=== PATIENT | male | born 1975 | race Caucasian/White ===

== ENCOUNTER 2021-02-24 10:26 | Observation (INO) | payer SELFPAY ==
[~2021-02-24] VITALS: Ht 182.9 cm; Wt 122.4 kg
[2021-02-24] MEDS ORDERED: ASPIRIN 325 MG TABLET PO ONE (11:00)
[2021-02-24 11:23] LABS: BASO # 0.1 x10^3/uL (0.0-0.2); BASO % 1 % (0-3); EOS # 0.1 x10^3/uL (0.0-0.7); EOS % 1 % (0-3); HEMATOCRIT 42.5 % (39.0-53.0); HEMOGLOBIN 14.7 g/dL (13.0-17.5); LYMPH # 2.5 x10^3/uL (1.0-4.8); LYMPH % 26 % (24-48); MEAN CORPUSCULAR HEMOGLOBIN 29 pg (25-35); MEAN CORPUSCULAR HGB CONC 35 g/dL (31-37); MEAN CORPUSCULAR VOLUME 83 fL (79-100); MONO # 0.7 x10^3/uL (0.0-1.1); MONO % 8 % (0-9); NEUT # 6.2 x10^3/uL (1.8-7.7); NEUT % 64 % (31-73); PLATELET COUNT 379 x10^3/uL (140-400); RED BLOOD COUNT 5.12 x10^6/uL (4.30-5.70); RED CELL DISTRIBUTION WIDTH 13.4 % (11.5-14.5); WHITE BLOOD COUNT 9.7 x10^3/uL (4.0-11.0)
[2021-02-24] MEDS: NITROGLYCERIN SUBLINGUAL 0.4 MG BOTTLE OF 25. SL PRN ×3 (11:28→12:09)
--- NOTE | 2021-02-24 11:36 | RAD ---
EXAM: Chest, single view. HISTORY: Chest pain. COMPARISON: None. FINDINGS: A frontal view of the chest is obtained. There is a small left retrocardiac opacity due to atelectasis or infiltrate. There is no pleural effusion or pneumothorax. The heart is normal in size. IMPRESSION: Suspected focal left lower lobe atelectasis or interstitial infiltrate. Electronically signed by: Perla Burris MD (02/24/2021 11:34 AM) [id number]
--- NOTE | 2021-02-24 11:40 | PHYS DOC ---
Past Medical History Past Medical History: Hypertension Past Surgical History: Tonsillectomy, Other Additional Past Surgical Histo: L. 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 He states short of breath especially with exertion. He states he is also having a aching pain in the left arm. Patient has a history of hypertension but is not taking any medicines every day. He is a smoker and he does vape. He has a family history of cardiac arrest and heart disease. Rates his pain around a 7 out of 10. He states that he also has lower extremity edema from time to time. He denies numbness or tingling, syncope, cough, fever, abdominal pain, nausea, vomiting, diarrhea, back pain, urinary symptoms, calf pain. Review of Systems: Review of Systems: Constitutional: Denies fever or chills. [] Eyes: Denies change in visual acuity. [] HENT: Denies nasal congestion or sore throat. [] Respiratory: Denies cough or +shortness of breath. [] Cardiovascular: +chest pain or +edema. [] GI: Denies abdominal pain, nausea, vomiting, bloody stools or diarrhea. [] : Denies dysuria. [] Musculoskeletal: Denies back pain or joint pain. [] Integument: Denies rash. [] Neurologic: Denies headache, focal weakness or sensory changes. +Light headedness[] Endocrine: Denies polyuria or polydipsia. [] Lymphatic: Denies swollen glands. [] Psychiatric: Denies depression or anxiety. [] Heart Score: C/O Chest Pain: Yes HEART Score for Chest Pain: HEART Score for Chest Pain Response (Comments) Value History Moderately Suspicious 1 ECG Nonspecific Repolarizatio 1 Age < 45 0 Risk Factors >3 Risk Factors or Hx CAD 2 Troponin < Normal Limit 0 Total 4 Risk Factors: Risk Factors: DM, Current or recent (<one month) smoker, HTN, HLP, family history of CAD, obesity. Risk Scores: Score 0 - 3: 2.5% MACE over next 6 weeks - Discharge Home Score 4 - 6: 20.3% MACE over next 6 weeks - Admit for Clinical Observation Score 7 - 10: 72.7% MACE over next 6 weeks - Early Invasive Strategies Current Medications: Current Medications Medications (Trade) Dose Ordered Sig/Gilma Start Time Stop Time Status Last Admin Dose Admin Aspirin (Heaven Aspirin) 325 mg 1X ONCE 02/24/21 11:00 02/24/21 11:01 DC 02/24/21 11:27 325 MG Nitroglycerin (Nitrostat) 0.4 mg PRN Q5MIN PRN 02/24/21 11:00 02/24/21 11:28 0.4 MG Allergies: Allergies: Allergies Coded Allergies Type Severity Reaction Last Updated Verified Sulfa (Sulfonamide Antibiotics) Allergy Intermediate 02/24/21 Yes Physical Exam: PE: Constitutional: Well developed, well nourished, no acute distress, non-toxic appearance. [] HENT: Normocephalic, atraumatic, bilateral external ears normal, oropharynx moist, no oral exudates, nose normal. [] Eyes: PERRLA, EOMI, conjunctiva normal, no discharge. [] Neck: Normal range of motion, no tenderness, supple, no stridor. [] Cardiovascular:Heart rate regular rhythm, no murmur [] Lungs & Thorax: Bilateral breath sounds clear to auscultation [] Abdomen: Bowel sounds normal, soft, no tenderness, no masses, no pulsatile masses. [] Skin: Warm, dry, no erythema, no rash. [] Back: No tenderness, no CVA tenderness. [] Extremities: No tenderness, no cyanosis, no clubbing, ROM intact,1+ edema. [] Neurologic: Alert and oriented X 3, normal motor function, normal sensory f unction, no focal deficits noted. [] Psychologic: Affect normal, judgement normal, mood normal. [] Current Patient Data: Labs: Laboratory Tests Test 02/24/21 10:50 White Blood Count 9.7 x10^3/uL (4.0-11.0) Red Blood Count 5.12 x10^6/uL (4.30-5.70) Hemoglobin 14.7 g/dL (13.0-17.5) Hematocrit 42.5 % (39.0-53.0) Mean Corpuscular Volume 83 fL (79-100) Mean Corpuscular Hemoglobin 29 pg (25-35) Mean Corpuscular Hemoglobin Concent 35 g/dL (31-37) Red Cell Distribution Width 13.4 % (11.5-14.5) Platelet Count 379 x10^3/uL (140-400) Neutrophils (%) (Auto) 64 % (31-73) Lymphocytes (%) (Auto) 26 % (24-48) Monocytes (%) (Auto) 8 % (0-9) Eosinophils (%) (Auto) 1 % (0-3) Basophils (%) (Auto) 1 % (0-3) Neutrophils # (Auto) 6.2 x10^3/uL (1.8-7.7) Lymphocytes # (Auto) 2.5 x10^3/uL (1.0-4.8) Monocytes # (Auto) 0.7 x10^3/uL (0.0-1.1) Eosinophils # (Auto) 0.1 x10^3/uL (0.0-0.7) Basophils # (Auto) 0.1 x10^3/uL (0.0-0.2) Laboratory Tests 02/24/21 10:50 Vital Signs: Vital Signs Date Time Temp Pulse Resp B/P (MAP) Pulse Ox O2 Delivery O2 Flow Rate FiO2 02/24/21 11:28 71 195/98 02/24/21 10:26 97.9 20 98 Room Air 97.9 EKG: EK and read by Dr. Linton is sinus rhythm with no STEMI. [address] Linton sinus rhythm and no STEMI Radiology/Procedures: Radiology/Procedures: [] Impression: [facility] [address] [place], [place] [id number] IMAGING REPORT Signed PATIENT: DANIELE ESPINOZA AACCOUNT: [id number] : 1975 LOCATION: ER AGE: 45 SEX: M EXAM STATUS: PRE ER ORD. PHYSICIAN: BRITTNEY TORRES APRN REASON: chest pain, soa PROCEDURE: PORTABLE CHEST 1V EXAM: Chest, single view. HISTORY: Chest pain. COMPARISON: None. FINDINGS: A frontal view of the chest is obtained. There is a small left retrocardiac opacity due to atelectasis or infiltrate. There is no pleural effusion or pneumothorax. The heart is normal in size. IMPRESSION: Suspected focal left lower lobe atelectasis or interstitial infiltrate. Electronically signed by: Perla Fernandez MD (02/24/2021 11:34 AM) [id number] DICTATED and SIGNED BY: PERLA FERNANDEZ MD DATE: 02/24/21 [id number] Course & Med Decision Making: Course & Med Decision Making Pertinent Labs and Imaging studies reviewed. (See chart for details) COVID-19 CRITERIA: The patient was evaluated during the global COVID-19 pandemic, and that diagnosis was suspected/considered upon their initial presentation. Their evaluation, treatment and testing was consistent with current guidelines for patients who present with complaints or symptoms that may be related to COVID-19. See HPI. Alert and oriented x4. Ambulatory with a steady gait. Skin pink warm and dry. Bilateral lower extremities 1+ edema. Speaks in full clear sentences. Lungs are clear to auscultation all lobes. After 3 nitroglycerin patient states it helped take his pain down. Also help lower his blood pressure. Chest x-ray shows pneumonia. Heart score is a 4. Patient admitted for chest pain, pneumonia and also testing for Covid. [] Dragon Disclaimer: Emir Disclaimer: This electronic medical record was generated, in whole or in part, using a voice recognition dictation system. COVID-19 Patient Risks: Age 65 or older: No Sign of co-morbidity: Yes Exp to person + for COVID: No Exp to PUI: No Travel from affected area: No Lower respiratory symptoms: Yes Fever: No Other: No PPE Use: Full PPE with N95 mask or PAPR: Yes Departure Departure Impression: Primary Impression: Hypertensive urgency Additional Impressions: Pneumonia Qualified Codes: J18.9 - Pneumonia, unspecified organism Person under investigation for COVID-19 Chest pain Qualified Codes: R07.9 - Chest pain, unspecified Disposition: ADMITTED INPATIENT Admitting Physician: KERRIE Condition: STABLE BRITTNEY TORRES APRN February 24, 2021 11:40
[2021-02-24 11:42] LABS: PROTHROMBIN TIME PATIENT 12.5 SEC (11.7-14.0)
[2021-02-24 11:52] LABS: CALCIUM 8.6 mg/dL (8.5-10.1); CREATININE 1.4 mg/dL (0.7-1.3); GFR 54.8; POTASSIUM 3.9 mmol/L (3.5-5.1)
[2021-02-24 11:55] LABS: ALBUMIN 4.1 g/dL (3.4-5.0); ALBUMIN/GLOBULIN RATIO 1.2 (1.0-1.7); TOTAL BILIRUBIN 0.4 mg/dL (0.2-1.0); TOTAL PROTEIN 7.6 g/dL (6.4-8.2)
[2021-02-24 12:01] LABS: D-DIMER < 0.27 ug/mlFEU (0.00-0.50)
[2021-02-24] MEDS ORDERED: IV NORMAL SALINE 1000ML BAG 1,000 ML IV ONE (12:30)
--- NOTE | 2021-02-24 12:38 | EKG ---
[facility] [address] [place] [address] Test Date: 2021-02-24 Test Time: 10:32:43 Pat Name: DANIELE ESPINOZA Department: Room: Gender: M [employer] Worker: : 1975 Requested By: BRITTNEY TORRES Order Number: [id number] Reading MD: Measurements Intervals [place] Rate: 79 P: 40 FL: 164 QRS: -9 QRSD: 80 T: 25 QT: 356 QTc: 409 Interpretive Statements SINUS RHYTHM LEFTWARD AXIS QRS(T) CONTOUR ABNORMALITY CONSIDER ANTEROSEPTAL MYOCARDIAL DAMAGE POSSIBLY ABNORMAL ECG RI6.01 No previous ECG available for comparison
[2021-02-24 13:13] LABS: BILIRUBIN,URINE NEGATIVE (NEG); CLARITY,URINE CLEAR; COLOR,URINE YELLOW; NITRITE,URINE NEGATIVE (NEG); PH,URINE 6.5 (<5.0-8.0); PROTEIN,URINE NEGATIVE (NEG-TRACE); UROBILINOGEN,URINE 0.2 mg/dL (0.2 mg/dL)
[2021-02-24 13:19] LABS: BACTERIA,URINE 0 /HPF (0-FEW); RBC,URINE RARE /HPF (0-2); WBC,URINE 0 /HPF (0-4)
[2021-02-24 13:20] LABS: BARBITURATES NEG (NEG); BENZODIAZEPINES NEG (NEG); CANNABINOIDS NEG (NEG); COCAINE NEG (NEG); METHADONE NEG (NEG); OPIATES NEG (NEG); PHENCYCLIDINE NEG (NEG)
[2021-02-24 13:26] LABS: AMPHETAMINE/METHAMPHETAMINE NEG (NEG)
[2021-02-24 14:40] VITALS: BP 161/93
--- NOTE | 2021-02-24 15:52 | EKG ---
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
[2021-02-24] MEDS ORDERED: LABETALOL 20 MG/4 ML DISP.SYRIN. IVP PRN (16:00)
[2021-02-24] MEDS ORDERED: amLODIPine BESYLATE 5 MG TABLET PO ONE (16:00)
--- NOTE | 2021-02-24 16:06 | PDOC2 ---
CARDIAC CONSULT DATE OF CONSULT Date of Consult DATE: 02/24/21 TIME: 15:40 REASON FOR CONSULT Reason for Consult: Chest pain, hypertensive REFERRING PHYSICIAN Referring Physician: Abad SOURCE Source: Chart review, Patient HISTORY OF PRESENT ILLNESS HISTORY OF PRESENT ILLNESS This is a pleasant 45 yo male admitted for complains of chest pain. 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 He was told in the past of HTN and was given meds but he stopped taking it since he could not follow up when he ran out and that has been a while. No falls or injury but while driving yesterday he felt some chest tightness sort of left prickly pain and felt clammy but no SOA, nausea or comiting. No palpitations. No fever or chills and no loss of taste or smell. No hx of CAD but also has not had any prior ischemic workup. Denies any VTE, arrhythmias in the past. No significant heavy lifting as far as his job and no prior covid-19 exposure. Upon admission his BP was uncontrolled. PAST MEDICAL HISTORY Cardiovascular: HTN Pulmonary: No pertinent hx CENTRAL NERVOUS SYSTEM: Other (No pertinent history) GI: No pertinent hx Heme/Onc: No pertinent hx Hepatobiliary: No pertinent hx Psych: No pertinent hx Musculoskeletal: Osteoarthritis Rheumatologic: No pertinent hx Infectious disease: No pertinent hx ENT: No pertinent hx Renal/: No pertinent hx Endocrine: No pertinent hx Dermatology: No pertinent hx PAST SURGICAL HISTORY Past Surgical History: Arthroscopy (left ankle), Tonsillectomy FAMILY HISTORY Family History: Coronary Artery Disease (mother CABG early 40s and father had cardiac arrest due to arrhythmia and had PPM late 30s) SOCIAL HISTORY Smoke: Quit (now vaping) ALCOHOL: none Drugs: None Lives: with Family CURRENT MEDICATIONS CURRENT MEDICATIONS Current Medications Medications (Trade) Dose Ordered Sig/Gilma Route PRN Reason Start Time Stop Time Status Last Admin Dose Admin Aspirin (Heaven Aspirin) 325 mg 1X ONCE PO 02/24/21 11:00 02/24/21 11:01 DC 02/24/21 11:27 Nitroglycerin (Nitrostat) 0.4 mg PRN Q5MIN PRN SL CHEST PAIN 02/24/21 11:00 02/24/21 12:09 Sodium Chloride 1,000 ml @ 1,000 mls/hr 1X ONCE IV 02/24/21 12:30 02/24/21 13:29 DC 02/24/21 12:55 ALLERGIES ALLERGIES: Coded Allergies: Sulfa (Sulfonamide Antibiotics) (Verified Allergy, Intermediate, 02/24/21) ROS Review of System 14 point ROS evaluated with pertinent positives noted per HPI PHYSICAL EXAM General: Alert, Oriented X3, Cooperative, No acute distress HEENT: Atraumatic, Mucous membr. moist/pink Lungs: Clear to auscultation, Normal air movement Heart: Regular rate (SR), Normal S1, Normal S2, No murmurs Abdomen: Soft, No tenderness Extremities: No cyanosis, No edema Skin: No breakdown, No significant lesion Neuro: Normal speech, Sensation intact Psych/Mental Status: Mental status NL, Mood NL MUSCULOSKELETAL: Osteoarthritic changes both hands VITALS/I&O VITALS/I&O: Vital Signs Date Time Temp Pulse Resp B/P (MAP) Pulse Ox O2 Delivery O2 Flow Rate FiO2 02/24/21 15:08 Room Air 02/24/21 14:40 97.7 73 18 161/93 (115) 98 97.7 LABS Lab: Laboratory Tests Test 02/24/21 10:50 02/24/21 12:50 02/24/21 12:53 02/24/21 12:55 White Blood Count 9.7 x10^3/uL (4.0-11.0) Red Blood Count 5.12 x10^6/uL (4.30-5.70) Hemoglobin 14.7 g/dL (13.0-17.5) Hematocrit 42.5 % (39.0-53.0) Mean Corpuscular Volume 83 fL (79-100) Mean Corpuscular Hemoglobin 29 pg (25-35) Mean Corpuscular Hemoglobin Concent 35 g/dL (31-37) Red Cell Distribution Width 13.4 % (11.5-14.5) Platelet Count 379 x10^3/uL (140-400) Neutrophils (%) (Auto) 64 % (31-73) Lymphocytes (%) (Auto) 26 % (24-48) Monocytes (%) (Auto) 8 % (0-9) Eosinophils (%) (Auto) 1 % (0-3) Basophils (%) (Auto) 1 % (0-3) Neutrophils # (Auto) 6.2 x10^3/uL (1.8-7.7) Lymphocytes # (Auto) 2.5 x10^3/uL (1.0-4.8) Monocytes # (Auto) 0.7 x10^3/uL (0.0-1.1) Eosinophils # (Auto) 0.1 x10^3/uL (0.0-0.7) Basophils # (Auto) 0.1 x10^3/uL (0.0-0.2) Prothrombin Time 12.5 SEC (11.7-14.0) Prothrombin Time INR 1.0 (0.8-1.1) D-Dimer (Darcy) < 0.27 ug/mlFEU Sodium Level 137 mmol/L (136-145) Potassium Level 3.9 mmol/L (3.5-5.1) Chloride Level 103 mmol/L (98-107) Carbon Dioxide Level 26 mmol/L (21-32) Anion Gap 8 (6-14) Blood Urea Nitrogen 14 mg/dL (8-26) Creatinine 1.4 mg/dL (0.7-1.3) H Estimated GFR (Cockcroft-Gault) 54.8 BUN/Creatinine Ratio 10 (6-20) Glucose Level 133 mg/dL (70-99) H Calcium Level 8.6 mg/dL (8.5-10.1) Total Bilirubin 0.4 mg/dL (0.2-1.0) Aspartate Amino Transferase (AST) 18 U/L (15-37) Alanine Aminotransferase (ALT) 35 U/L (16-63) Alkaline Phosphatase 99 U/L (46-116) Troponin I Quantitative < 0.017 ng/mL (0.000-0.055) AU-Ywt-Q-Type Natriuretic Peptide 26 pg/mL (0-124) Total Protein 7.6 g/dL (6.4-8.2) Albumin 4.1 g/dL (3.4-5.0) Albumin/Globulin Ratio 1.2 (1.0-1.7) Lipase 323 U/L (73-393) Urine Collection Type Unknown Urine Color Yellow Urine Clarity Clear Urine pH 6.5 (<5.0-8.0) Urine Specific [place] 1.010 (1.000-1.030) Urine Protein Negative mg/dL (NEG-TRACE) Urine Glucose (UA) Negative mg/dL (NEG) Urine Ketones (Stick) Negative mg/dL (NEG) Urine Blood Negative (NEG) Urine Nitrite Negative (NEG) Urine Bilirubin Negative (NEG) Urine Urobilinogen Dipstick 0.2 mg/dL (0.2 mg/dL) Urine Leukocyte Esterase Negative (NEG) Urine RBC Rare /HPF (0-2) Urine WBC 0 /HPF (0-4) Urine Bacteria 0 /HPF (0-FEW) Urine Mucus Slight /LPF Urine Opiates Screen Neg (NEG) Urine Methadone Screen Neg (NEG) Urine Barbiturates Neg (NEG) Urine Phencyclidine Screen Neg (NEG) Urine Amphetamine/Methamphetamine Neg (NEG) Urine Benzodiazepines Screen Neg (NEG) Urine Cocaine Screen Neg (NEG) Urine Cannabinoids Screen Neg (NEG) Urine Ethyl Alcohol Neg (NEG) Lactic Acid Level 1.1 mmol/L (0.4-2.0) Test 02/24/21 14:18 Troponin I Quantitative < 0.017 ng/mL (0.000-0.055) Laboratory Tests 02/24/21 10:50 Laboratory Tests 02/24/21 10:50 ASSESSMENT/PLAN ASSESSMENT/PLAN 1. Chest pain: likely from uncontrolled HTN 2. Accelerated HTN 3. Family hx of premature CAD 4. Obesity 5. PUI 6. suspect CKD 7. Vaping: otherwise 60 pk yr tobacco use Recommendations 1. Norvasc x1. Labetolol PRN 2. TSH and FLP. Awaiiting covid-19. Trend troponin 3. TTE tomorrow if neg for covid-19 4. Consider for outpt stress test. MUNA DENSON PROGRAM MEDICAL DIRECTOR February 24, 2021 16:06
--- NOTE | 2021-02-24 17:29 | HP ---
ADMIT DATE: 02/24/2021 CHIEF COMPLAINT: Chest pain. 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 He presents today with chest pain. He has some associated shortness of breath and nausea. It is also radiating to the left arm, rated at 7/10. I gave him a couple of nitro in the ER that did seem to help. His blood pressure was also 200 systolically. Chest x-ray showing possible pneumonia. I discussed the case with the ER physician. We are going to admit the patient and consult Cardiology. PAST MEDICAL HISTORY: Hypertension. ALLERGIES: SULFA. FAMILY HISTORY: Diabetes. SOCIAL HISTORY: Does not drink, smoke or take drugs. 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 MEDICATIONS: Reviewed. Please refer to the MRAD. REVIEW OF SYSTEMS: GENERAL: No history of weight change, weakness or fevers. SKIN: No bruising, hair changes or rashes. EYES: No blurred, double or loss of vision. NOSE AND THROAT: No history of nosebleeds, hoarseness or sore throat. HEART: No history of palpitations, chest pain or shortness of breath on exertion. LUNGS: Denies cough, hemoptysis, wheezing or shortness of breath. GASTROINTESTINAL: Denies changes in appetite, nausea, vomiting, diarrhea or constipation. GENITOURINARY: No history of frequency, urgency, hesitancy or nocturia. NEUROLOGIC: Denies history of numbness, tingling, tremor or weakness. PSYCHIATRIC: No history of panic, anxiety or depression. ENDOCRINE: No history of heat or cold intolerance, polyuria or polydipsia. EXTREMITIES: Denies muscle weakness, joint pain, pain on walking or stiffness. PHYSICAL EXAMINATION: VITALS: Within normal limits and are stable. GENERAL: No apparent distress. Alert and oriented. HEENT: Normal cephalic atraumatic, external auditory canals are patent. EYES: Extraocular muscles are intact, pupils are equally round and reactive to light and accommodation. MUSCULOSKELETAL: Well developed, well nourished, good range of motion. ENDOCRINE: No thyromegaly was palpated. LYMPHATICS: No cervical chain or axillary nodes were noted. HEMATOPOIETIC: No bruising. NECK: Supple, no JVD, no thyromegaly was noted. LUNGS: Clear to auscultation in all lung wick without rhonchi or wheezing. HEART: RRR, S1, S2 present. Peripheral pulses intact, no obvious murmurs were noted. ABDOMEN: Soft, nontender. Positive bowel sounds no organomegaly, normal bowel sounds. EXTREMITIES: Without any cyanosis, clubbing, or edema. Pedal pulses intact, Homans sign is negative. NEUROLOGIC: Normal speech, normal tone. A and O x3, moves all extremities, no obvious focal deficits. PSYCHIATRIC: Normal affect, normal mood. Stable. SKIN: No ulcerations or rashes, good skin turgor, no jaundice. VASCULAR: Good capillary refill, neurovascular bundle appears to be intact. LABORATORY DATA: Troponin is 0. Hematology is normal. Electrolytes are pending. Chest x-ray shows suspected left lower lobe atelectasis or infiltrate. ASSESSMENT AND PLAN: Chest pain and abnormal chest x-ray. The patient will be admitted. We will consult Pulmonary, consult Cardiology. Home meds. Deep venous thrombosis prophylaxis. Full code. Cardiac monitoring, serial enzymes, serial EKGs. Regarding the accelerated hypertension, we will give him p.r.n. labetalol and amlodipine. Check a TSH. We have him on respiratory isolation to check for COVID-19. P.r.n. nitro, daily aspirin. AGUSTÍN/EDI/[facility] DR: AGUSTÍN/roro TID: [id number]
[2021-02-24] MEDS ORDERED: ACETAMINOPHEN 325 MG TABLET. PO PRN (17:30)
[2021-02-24 19:00] VITALS: BP 151/87
[2021-02-24] MEDS ORDERED: BENZOCAINE 10% ORAL GEL 7GM TUBE. TP PRN (22:00)
[2021-02-24 22:46] VITALS: BP 157/81
[2021-02-25 03:00] VITALS: BP 142/91
[2021-02-25 04:32] LABS: CHOLESTEROL/HDL RATIO 8.8
[2021-02-25 07:00] VITALS: BP 173/99
[2021-02-25] MEDS ORDERED: amLODIPine BESYLATE 10 MG TABLET PO SCH (09:00)
[2021-02-25 09:12] LABS: CALCIUM 8.5 mg/dL (8.5-10.1); CREATININE 1.3 mg/dL (0.7-1.3); GFR 59.7; POTASSIUM 4.2 mmol/L (3.5-5.1)
--- NOTE | 2021-02-25 09:34 | CONS ---
DATE OF CONSULTATION: 02/25/2021 PULMONARY CONSULTATION ATTENDING PHYSICIAN: Joycelyn Bonner DO REASON FOR CONSULTATION: Chest pain. HISTORY OF PRESENT ILLNESS: The patient is a 45-year-old obese male with a BMI of 36. The patient has a history of tobacco use up to 2 packs per day, quit tobacco and then has been vaping cigarettes for 5 years. He was brought into the hospital with a complaint of substernal chest pain radiating to the left arm. The patient was also hypertensive on arrival. His blood pressure was 191 systolic with a diastolic of 98. His chest pain is resolved. He feels better. There is no shortness of breath. No cough, no fever, no chills. No headache. No nausea, vomiting or diarrhea. Chest x-ray was reviewed by me. Per my review, there is no consolidation. PAST MEDICAL HISTORY: Significant for hypertension, osteoarthritis and obesity. PAST SURGICAL HISTORY: Arthroscopic surgery and tonsillectomy. FAMILY HISTORY: Coronary artery disease. Mother had CABG in her early 40s and father had cardiac arrest due to arrhythmias and had pacemaker lat in the 30s. SOCIAL HISTORY: He smoked for 15 years up to 2 packs per day and then has been doing vaping for the last 5 years. REVIEW OF SYSTEMS: Twelve-point system obtained. Pertinent positives and negatives discussed in my presence illness, otherwise noncontributory. All systems that were negative were reviewed as well. ALLERGIES: SULFA. MEDICATIONS: Reviewed as listed in the MRAD. PHYSICAL EXAMINATION: VITAL SIGNS: Reviewed. Blood pressure is now better controlled. It has come down as well as 142 systolic. Afebrile, pulse ox 94% on room air. NECK: Supple. LUNGS: Clear. CARDIOVASCULAR: With a regular rate and rhythm. ABDOMEN: Soft and nontender. EXTREMITIES: With no pitting edema. LABORATORY DATA: Labs were reviewed. COVID negative. BUN and creatinine 13 and 1.3. D-dimer less than 0.27. White cell count 9.7. IMPRESSION: 1. Substernal chest pain with radiation to the left arm. Likely contributed by hypertensive urgency and angina-like symptoms. Symptoms have resolved. D-dimer normal and no need to pursue with any thromboembolic workup. 2. History of tobaccoism. Now doing vaping for the last 5 years. Family history of premature coronary artery disease. 3. Underlying obesity. RECOMMENDATIONS: 1. From pulmonary standpoint, he is stable. I have counseled him regarding cessation of vaping. He does not seem to be motivated. 2. Control of blood pressure per Cardiology. 3. He is COVID negative. 4. Follow Cardiology recommendation. Outpatient stress test per their recommendation. 5. From a pulmonary standpoint, he could be discharged. LINNEA DR: Duran TID: [id number]
[2021-02-25 11:00] VITALS: BP 167/88
--- NOTE | 2021-02-25 11:16 | NUR ---
SS following for discharge planning. SS reviewed pt chart and discussed with pt RN. Pt is from home and is currently on room air. Cardiology and Pulmonology consulted. COVID19 negative. Discharge plan is to home when medically ready. SS will continue to follow for discharge planning.
[2021-02-25] MEDS ORDERED: AMLO-187 PO (11:47)
[2021-02-25] MEDS ORDERED: ATOR40TA59 PO (11:48)
--- NOTE | 2021-02-25 11:49 | DISCH ---
DISCHARGE INSTRUCTIONS Condition on Discharge Condition on Discharge: Stable Activity After Discharge Activity Instructions for Disc: Activity as tolerated Driving Instructions after Dis: Do not drive today Diet after Discharge Diet after Discharge: Cardiac Checks after Discharge Checks after discharge: Check blood press - daily Follow-Up Follow up with: PCP GUME Follow Up With: Cardiology once established with PCP MERISSA AHN MD February 25, 2021 11:49
[2021-02-25] MEDS ORDERED: ASPIRIN ENTERIC COATED 81 MG TABLET.DR. PO SCH (12:00)
[2021-02-25] MEDS ORDERED: METOPROLOL TART IMMED RELEASE 25 MG TABLET. PO SCH (12:00)
--- NOTE | 2021-02-25 12:06 | PDOC ---
MUNA DENSON [employer] TECHNICIAN 02/25/21 1206: CARDIO Progress Notes Date and Time Date of Service 02/25/2021 Time of Evaluation 1130 Subjective Subjective: No Chest Pain, No shortness of breath, No Palpitations Vitals Vitals Vital Signs Date Time Temp Pulse Resp B/P (MAP) Pulse Ox O2 Delivery O2 Flow Rate FiO2 02/25/21 11:00 97.5 73 20 167/88 (114) 96 Room Air 97.5 Weight Weight [ ] Input and Output Intake and Output Intake and Output 02/25/21 07:00 Intake Total 2050 ml Output Total 1200 ml Balance 850 ml Intake Oral 1050 ml IV Total 1000 ml Output Urine Total 1200 ml Laboratory Labs Laboratory Tests Test 02/24/21 12:50 02/24/21 12:53 02/24/21 12:55 02/24/21 14:15 Urine Collection Type Unknown Urine Color Yellow Urine Clarity Clear Urine pH 6.5 (<5.0-8.0) Urine Specific [place] 1.010 (1.000-1.030) Urine Protein Negative mg/dL (NEG-TRACE) Urine Glucose (UA) Negative mg/dL (NEG) Urine Ketones (Stick) Negative mg/dL (NEG) Urine Blood Negative (NEG) Urine Nitrite Negative (NEG) Urine Bilirubin Negative (NEG) Urine Urobilinogen Dipstick 0.2 mg/dL (0.2 mg/dL) Urine Leukocyte Esterase Negative (NEG) Urine RBC Rare /HPF (0-2) Urine WBC 0 /HPF (0-4) Urine Bacteria 0 /HPF (0-FEW) Urine Mucus Slight /LPF Urine Opiates Screen Neg (NEG) Urine Methadone Screen Neg (NEG) Urine Barbiturates Neg (NEG) Urine Phencyclidine Screen Neg (NEG) Urine Amphetamine/Methamphetamine Neg (NEG) Urine Benzodiazepines Screen Neg (NEG) Urine Cocaine Screen Neg (NEG) Urine Cannabinoids Screen Neg (NEG) Urine Ethyl Alcohol Neg (NEG) Lactic Acid Level 1.1 mmol/L (0.4-2.0) SARS-CoV-2 RNA (KEIM) Negative (Negative) Test 02/24/21 14:18 02/24/21 18:20 02/25/21 03:15 Troponin I Quantitative < 0.017 ng/mL (0.000-0.055) < 0.017 ng/mL (0.000-0.055) Sodium Level 141 mmol/L (136-145) Potassium Level 4.2 mmol/L (3.5-5.1) Chloride Level 105 mmol/L (98-107) Carbon Dioxide Level 27 mmol/L (21-32) Anion Gap 9 (6-14) Blood Urea Nitrogen 13 mg/dL (8-26) Creatinine 1.3 mg/dL (0.7-1.3) Estimated GFR (Cockcroft-Gault) 59.7 Glucose Level 116 mg/dL (70-99) Calcium Level 8.5 mg/dL (8.5-10.1) Triglycerides Level 271 mg/dL (0-150) Cholesterol Level 175 mg/dL (0-200) LDL Cholesterol, Calculated 101 mg/dL (0-100) VLDL Cholesterol, Calculated 54 mg/dL (0-40) Non-HDL Cholesterol Calculated 155 mg/dL (0-129) HDL Cholesterol 20 mg/dL (40-60) Cholesterol/HDL Ratio 8.8 Physical Exam HEENT: Neck Supple W Full Motion Chest: Symmetric LUNGS: Clear to Auscultation Heart: S1S2, RRR (SR) Abdomen: Soft N/T Extremities: No Edema, No Calf Tenderness Neurology: alert, oriented, follow commands Assessment Assessment 1. Chest pain: likely from uncontrolled HTN 2. Accelerated HTN: still has labile episode 3. Family hx of premature CAD 4. Obesity 5. suspect CKD 6. Vaping: otherwise 60 pk yr tobacco use 7. PSVT: x1 episode otherwise SR Recommendations 1. Continue norvasc and will add metoprolol 2. Baby ASA and low dose lipitor 3. TTE today 4. Consider for outpt stress test and MCOT 5. SS for referral to outreach clinic. 6. Encouraged to stop vaping. Encourage to follow up in office. Anticipate DC this afternoon Justicifation of Admission Dx: Justifications for Admission: Justification of Admission Dx: Yes JOHN HODGSON MD 02/25/211811: CARDIO Progress Notes Plan Plan Patient seen and examined. Agree with above nurse practitioner note. Echocardiogram is unremarkable. Supportive care. Continue medical therapy for hypertension MUNA DENSON APRN February 25, 2021 12:06 JOHN HODGSON MD February 25, 2021 18:12
[2021-02-25 15:00] VITALS: BP 150/98
[2021-02-25] MEDS ORDERED: METO25TA4 PO (17:21)
[2021-02-25] MEDS ORDERED: ASPI-630 PO (17:33)
--- NOTE | 2021-02-25 18:15 | NUR ---
Discharge Note: DANIELE ESPINOZA [address] Discharge instructions and discharge home medications reviewed with Patient and a copy given. All questions have been answered and understanding verbalized. The following instructions and handouts were given: How to take blood pressure, blood pressure record sheet, metoprolol tabs, amlodipine tabs. Patient discharged to home with self care via private vehicle. IV out, monitor placed at desk. Metoprolol called to [facility] pharmacy, per Rosendo Underwood's note.
[2021-02-25] MEDS ORDERED: ATORVASTATIN CALCIUM 10 MG TABLET. PO SCH (21:00)
--- NOTE | 2021-02-26 12:23 | CARD ---
MR#: [id number] Date of Study: 02/25/2021 Ordering Physician: MUNA DENSON, Referring Physician: MUNA DENSON, Tech: Ilana Roberts, [facility] APPROVED REPORT EXAM: Two-dimensional and M-mode echocardiogram with Doppler and color Doppler. Other Information Quality : AverageHR: 76bpm INDICATION Dyspnea Chest Pain RISK FACTORS Hypertension Smoking 2D DIMENSIONS RVDd3.6 (2.9-3.5cm)Left Atrium(2D)3.5 (1.6-4.0cm) IVSd0.9 (0.7-1.1cm)Aortic Root(2D)3.4 (2.0-3.7cm) LVDd5.3 (3.9-5.9cm)LVOT Diameter2.0 (1.8-2.4cm) PWd1.0 (0.7-1.1cm)LVDs2.9 (2.5-4.0cm) FS (%) 46.1 %SV106.0 ml LVEF(%)76.0 (>50%) Aortic Valve AoV Peak Beto.154.0cm/sAoV VTI25.5cm AO Peak GR.9.5mmHgLVOT Peak Beto.122.5cm/s LVOT VTI 21.57cmAO Mean GR.6mmHg JOHN (VMAX)1.30de1TZX (VTI)2.66cm2 Mitral Valve MV E Jwqdsmvy12.8cm/sMV DECEL [id number] MV A Fbbzdevt58.1cm/sMV [id number] E/A Ratio1.0MVA (PHT)3.17cm2 TDI E/Lateral E'5.9E/Medial E'10.2 Pulmonary Valve PV Peak Hwddjkip436.4cm/sPV Peak Grad.4mmHg Pulmonary Vein S1 Wcnrgkfu04.0cm/sD2 Ttnvcuqb67.0cm/s PVa [id number] LEFT VENTRICLE The left ventricle is normal size. There is normal left ventricular wall thickness. The left ventricu lar systolic function is normal. The Ejection Fraction is 55-60%. There is normal LV segmental wall m otion. Transmitral Doppler flow pattern is Grade II-pseudonormal filling dynamics. RIGHT VENTRICLE The right ventricle is normal size. There is normal right ventricular wall thickness. The right ventr icular systolic function is normal. ATRIA The left atrium size is normal. The right atrium size is normal. The interatrial septum is intact wit h no evidence for an atrial septal defect or patent foramen ovale as noted on 2-D or Doppler imaging. AORTIC VALVE The aortic valve is normal in structure and function. Doppler and Color Flow revealed no significant aortic regurgitation. There is no significant aortic valvular stenosis. Calculated aortic valve area is 3.03 cm2 with maximum pressure gradient of 11 mmHg and mean pressure gradient of 6 mmHg. MITRAL VALVE The mitral valve is normal in structure and function. There is no evidence of mitral valve prolapse. There is no mitral valve stenosis. Doppler and Color-flow revealed trace mitral regurgitation. TRICUSPID VALVE The tricuspid valve is normal in structure and function. Doppler and Color Flow revealed trace tricus pid regurgitation. There is no tricuspid valve stenosis. PULMONIC VALVE The pulmonic valve is not well visualized. Doppler and Color Flow revealed no pulmonic valvular regur gitation. GREAT VESSELS The aortic root is normal in size. The IVC is normal in size and collapses >50% with inspiration. PERICARDIAL EFFUSION There is no evidence of significant pericardial effusion. Critical Notification Critical Value: No <Conclusion> The left ventricular systolic function is normal. The Ejection Fraction is 55-60%. There is normal LV segmental wall motion. Transmitral Doppler flow pattern is Grade II-pseudonormal filling dynamics. Trace mitral regurgitation. Trace tricuspid regurgitation. There is no evidence of significant pericardial effusion. Signed by : Flip Miles, Electronically Approved : 02/26/2021 12:22:34
--- NOTE | 2021-02-27 21:52 | PDOC3 ---
[facility]-Discharge Summary Date of Admission: Date of Admission: February 24, 2021 Date of Discharge: Date of Discharge: February 25, 2021 Discharge Diagnosis: Discharge Diagnosis: 1. Chest pain: likely from uncontrolled HTN 2. Accelerated HTN: still has labile episode 3. Family hx of premature CAD 4. Obesity 5. suspect CKD 6. Vaping: otherwise 60 pk yr tobacco use 7. PSVT: x1 episode otherwise SR Consults: Consults: cardiology Recommendations 1. Continue norvasc and will add metoprolol 2. Baby ASA and low dose lipitor 3. TTE today 4. Consider for outpt stress test and MCOT 5. SS for referral to outreach clinic. 6. Encouraged to stop vaping. Encourage to follow up in office. 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 He presents today with chest pain. He has some associated shortness of breath and nausea. It is also radiating to the left arm, rated at 7/10. I gave him a couple of nitro in the ER that did seem to help. His blood pressure was also 200 systolically. Chest x-ray showing possible pneumonia. I discussed the case with the ER physician. We are going to admit the patient and consult Cardiology. By day of discharge, pt was clinically stable and ready for discharge. Rest of hospital course was uneventful Disposition: Disposition/Orders: D/C to Home Activity: Activity: Resume previous activity Diet: Diet: Cardiac Medications: Home Meds Active Scripts Atorvastatin Calcium (ATORVASTATIN CALCIUM) 40 Mg Tablet, 1 TAB PO QHS for dyslipidemia, #90 TAB 3 Refills Prov:MERISSA AHN MD 02/25/21 Amlodipine Besylate (AMLODIPINE BESYLATE) 10 Mg Tablet, 10 MG PO DAILY for blood pressure for 30 Days, #30 TAB Prov:MERISSA AHN MD 02/25/21 Reported Medications Aspirin (ASPIRIN) 81 Mg Tab.chew, 1 TAB PO DAILY for anticoagulation, #30 TAB 3 Refills 02/25/21 Metoprolol Tartrate (METOPROLOL TARTRATE) 25 Mg Tablet, 1 TAB PO BID for htn, #180 TAB 1 Refill 02/25/21 Discontinued Reported Medications Info (NO KNOWN MEDICATIONS PRIOR TO ADMISSTION) Each, 1 EACH MC 1X for none, EACH 02/24/21 Scheduled Amlodipine Besylate (Amlodipine Besylate), 10 MG PO DAILY Aspirin (Aspirin), 1 TAB PO DAILY, (Reported) Atorvastatin Calcium (Atorvastatin Calcium), 1 TAB PO QHS Metoprolol Tartrate (Metoprolol Tartrate), 1 TAB PO BID, (Reported) Discontinued Medications Info (No Known Medications Prior To Admisstion), 1 EACH 1X, (Reported) Total Time: Total Time: Total time spent was 35 minutes in preparing scripts, discharge planning with SW and RN, and preparing this discharge summary. Patient seen and examined on day of discharge. Justicifation of Admission Dx: Justifications for Admission: Justification of Admission Dx: Yes MERISSA AHN MD February 27, 2021 21:52
== END 2021-02-25 18:04 | disposition home or self-care (01) ==
LOC: ER 10:26 → 2 SOUTH 12:58
PROVIDERS: ADMIT Internal Medicine; ATTEND Internal Medicine
DX: R07.89 Other chest pain (principal); Z20.822 Contact with and (suspected) exposure to COVID-19; I16.0 Hypertensive urgency; J18.9 Pneumonia, unspecified organism; I47.1 Supraventricular tachycardia; M19.90 Unspecified osteoarthritis, unspecified site; E66.9 Obesity, unspecified; F17.200 Nicotine dependence, unspecified, uncomplicated; Z90.49 Acquired absence of other specified parts of digestive tract; Z79.899 Other long term (current) drug therapy; Z98.890 Other specified postprocedural states; Z79.82 Long term (current) use of aspirin; Z68.36 Body mass index [BMI] 36.0-36.9, adult; Z78.9 Other specified health status
CPT/HCPCS: 36415; 71045; 80048; 80053; 80061; 80307; 81001; 83605; 83690; 83880; 84443; 84484; 85025; 85379; 85610; 87040; 93005; 93306; 96360; 96361; 99285; G0378; J7030; U0003; U0005; G0379